=== PATIENT | female | born 1965 | race Caucasian/White ===

== ENCOUNTER 2023-09-29 12:55 | Outpatient (CLI) | payer MEDICARE, MEDICAID, SELFPAY ==
--- NOTE | 2023-10-02 11:32 | P.PCNPFT_ITS ---
PFT Procedure Performed PFT Procedure Performed Spirometry with Pre/Post Bronchodilator Plethysmography (Lung Vol) Diffusing Cap (DLCO) Flow Vol Loop PFT Interpretation DOS: 09/29/2023 REQUESTING: SIXTO Woodard REASON FOR TESTING: shortness of breath PULMONARY FUNCTION TESTS Results are reliable and reproducible. Repeatability of spirometry FEV1 maneuver pre and post bronchodilator is Grade A. Spirometry: The pre-bronchodilator FEV1 is 1.93 L, 77%, normal. The pre- bronchodilator FVC is 2.56 L, 82%, normal. The FEV1/FVC ratio is 75%. After bronchodilator, the FEV1 is 2.14 L, 86%, +11%. The FVC is 2.73 L, 88%, +6%. The FEV1/FVC ratio is 79%. The FEF 25-75% at baseline is 1.49 L, 54% predicted and after bronchodilator increases to 2.01 L, 72%, a 34% increase. Lung volumes: The total lung capacity is 4.55 L, 86%, normal. The residual volume is 1.94 L, 97%, normal. The RV/TLC is 43%. Airway resistance is increased. Diffusion: DLCO is 21.9, 66%. The DLCO/VA is 5.15, 135%. Flow volume loop: The flow volume loop shows mild coving of the expiratory limb. IMPRESSION: This study shows a mild obstructive ventilatory impairment which is significant in the small airways, good response to bronchodilator in the small airways, normal lung volumes, and adequate diffusion. No prior studies for comparison. In the proper clinical setting, this PFT may be compatible with asthma. Clinical correlation is recommended. Jody Lopez MD
== END 2023-09-29 12:56 | disposition home or self-care (01) ==
LOC: CHSCARD 12:58
PROVIDERS: PCP Nurse Practitioner; Visit Provider Nurse Practitioner
DX: R06.02 Shortness of breath (principal); R94.2 Abnormal results of pulmonary function studies
CPT/HCPCS: 94060; 94726; 94729

== ENCOUNTER 2024-02-01 12:51 | Outpatient (CLI) | payer MEDICARE, MEDICAID, SELFPAY ==
--- NOTE | ~2024-02-01 | US_ITS ---
EXAMINATION: US FNA w image guidance DATE: 02/01/2024 13:58 INDICATION: Multiple thyroid nodules TECHNIQUE: A time-out was performed to verify the patient's name, date of , and procedure to be performed . The procedure and its benefits and risks were discussed with the patient. Risks specifically discus sed included bleeding and infection. The patient understood the risks and agreed to proceed. The neck was prepped and draped in the usual sterile manner. 3 mL 1% lidocaine was used for local anesthesia . 6 passes were made with a 25G needle into the lesion. Appropriate needle location was documented with continuous sonographic guidance. A sterile bandage was applied. There were no immediate compli cations. FINDINGS: Grayscale ultrasound images demonstrate biopsy needles advanced into the 2.9 cm solid heterogeneous h ypo and isoechoic nodule with lobular margins and internal coarse calcifications at the inferior left thyroid lobe. The imaging features would be consistent with a TI RADS 5 nodule. Of note there are co uple solid nodules in the right thyroid lobe which appear slightly hypoechoic relative to surrounding thyroid, the larger measuring 2.6 cm with small coarse calcification and the smaller measuring 1.7 c m, both TI-RADS 4 (moderately suspicious , FNA if >=1.5 cm, annual followup is >=1 cm). IMPRESSION: 1. Successful ultrasound-guided fine needle aspiration of a 2.9 cm left thyroid nodule with imaging features consistent with a TI-RADS 5 nodule. 2. 2.6 cm and 1.7 cm TI-RADS 4 right thyroid nodules. Reviewed, dictated and finalized at location A. IMPRESSION: 1. Successful ultrasound-guided fine needle aspiration of a 2.9 cm left thyroi d nodule with imaging features consistent with a TI-RADS 5 nodule. 2. 2.6 cm and 1.7 cm TI-RADS 4 right thyroid nodules.
== END 2024-02-01 12:52 | disposition home or self-care (01) ==
PROVIDERS: PCP Nurse Practitioner; Visit Provider Otolaryngology
DX: E07.9 Disorder of thyroid, unspecified (principal); E04.2 Nontoxic multinodular goiter
CPT/HCPCS: 10005; 88172; 88173; 88177; 88305